=== PATIENT | female | born 1995 | race Caucasian/White ===

== ENCOUNTER 2018-03-19 09:42 | Emergency (ER) | payer MEDICAID ==
[~2018-03-19] VITALS: Ht 175.3 cm; Wt 74.8 kg
[2018-03-19] MEDS ORDERED: XANAX 0.5 MG0.5 MG PO (09:53)
[2018-03-19 10:37] LABS: ABSOLUTE BASOPHILS 0.1 thou/uL (0.0-0.2); ABSOLUTE EOSINOPHILS 0.2 thou/uL (0.0-0.7); ABSOLUTE LYMPHOCYTES 1.4 thou/uL (0.8-5.3); ABSOLUTE MONOCYTES 0.5 thou/uL (0.0-1.2); ABSOLUTE NEUTROPHILS 7.1 thou/uL (1.6-8.1); BASOPHILS 0.9 %; EOSINOPHILS 1.7 %; HEMATOCRIT 44.8 % (37.0-47.0); HEMOGLOBIN 15.1 gm/dL (12.0-15.0); LYMPHOCYTES 14.9 %; MCH 30.9 pg (26.0-34.0); MCHC 33.7 g/dL (28.0-37.0); MCV 91.7 fL (80.0-100.0); MONOCYTES 5.9 %; MPV 9.6 fl. (7.2-11.1); NUCLEATED RBCS 0 /100WBC; PLATELET COUNT* 270 thou/uL (150-400); POLYS 76.6 %; RBC 4.89 mil/uL (4.20-5.00); WBC 9.3 thou/uL (4.0-11.0)
[2018-03-19 10:41] LABS: URINE CLARITY CLEAR; URINE COLOR YELLOW; URINE PROTEIN TRACE (Negative); URINE SPECIFIC GRAVITY 1.015 (1.005-1.030)
[2018-03-19 10:42] LABS: URINE BILIRUBIN NEGATIVE (Negative); URINE BLOOD NEGATIVE (Negative); URINE GLUCOSE-RANDOM NEGATIVE (Negative); URINE KETONES TRACE (Negative); URINE NITRITE-REFLEX NEGATIVE (Negative); URINE UROBILINOGEN 0.2 E.U./dl (0.2-1.0)
[2018-03-19 10:43] LABS: URINE LEUKOCYTES-REFLEX NEGATIVE (Negative)
[2018-03-19 10:44] LABS: CALCIUM 8.9 mg/dL (8.5-10.1); CREATININE 0.6 mg/dL (0.6-1.3); POTASSIUM 4.2 mmol/L (3.5-5.1)
[2018-03-19 10:49] LABS: ALBUMIN 4.3 g/dL (3.4-5.0); TOTAL BILIRUBIN 0.5 mg/dL (<0.1-1.0); TOTAL PROTEIN 7.7 g/dL (6.4-8.2)
[2018-03-19] MEDS ORDERED: ZOFRAN ODT4 MG SUBLING (11:05)
[2018-03-19 11:50] VITALS: BP 101/43
== END 2018-03-19 11:50 | disposition home or self-care (01) ==
LOC: M.ERS 09:42
PROVIDERS: Family Medicine
DX: R11.2 Nausea with vomiting, unspecified (principal)

== ENCOUNTER 2018-03-24 13:29 | Emergency (ER) | payer OTHER, MEDICAID ==
[~2018-03-24] VITALS: Ht 175.3 cm; Wt 68.0 kg
[~2018-03-24 13:29] MED LIST: XANAX 0.5 MG0.5 MG PO; ZOFRAN ODT4 MG SUBLING
[2018-03-24] MEDS ORDERED: NABUMETONE 750750 M1 PO (13:53)
[2018-03-24 14:34] VITALS: BP 128/61
== END 2018-03-24 14:34 | disposition home or self-care (01) ==
LOC: M.ERS 13:29
DX: S61.217A Laceration without foreign body of left little finger without damage to nail, initial encounter (principal); W26.0XXA Contact with knife, initial encounter; Y93.89 Activity, other specified; Y92.89 Other specified places as the place of occurrence of the external cause; Y99.8 Other external cause status

== ENCOUNTER 2018-04-03 16:23 | Emergency (ER) | payer OTHER, MEDICAID ==
[~2018-04-03] VITALS: Ht 180.3 cm; Wt 79.4 kg
[~2018-04-03 16:23] MED LIST changes: +NABUMETONE 750750 M1 PO
[2018-04-03 17:02] VITALS: BP 115/64
== END 2018-04-03 17:02 | disposition home or self-care (01) ==
LOC: M.ERS 16:23
DX: S61.217D Laceration without foreign body of left little finger without damage to nail, subsequent encounter (principal); X58.XXXD Exposure to other specified factors, subsequent encounter

== ENCOUNTER 2018-08-12 09:38 | Emergency (ER) | payer MEDICAID ==
[~2018-08-12] VITALS: Ht 175.3 cm; Wt 81.7 kg
[2018-08-12] MEDS ORDERED: AMOXICILLIN500 M1 PO (09:54)
[2018-08-12] MEDS ORDERED: ACETAMINOPHEN-1 EAC1 PO (09:54)
[2018-08-12] MEDS ORDERED: Magic Mouthwash PO (09:54)
[2018-08-12 10:26] VITALS: BP 128/77
== END 2018-08-12 10:27 | disposition home or self-care (01) ==
LOC: M.ERS 09:38
DX: J02.9 Acute pharyngitis, unspecified (principal)

== ENCOUNTER 2018-08-27 08:47 | Emergency (ER) | payer MEDICAID ==
[~2018-08-27] VITALS: Ht 175.3 cm; Wt 81.7 kg
[~2018-08-27 08:47] MED LIST changes: +ACETAMINOPHEN-1 EAC1 PO; +AMOXICILLIN500 M1 PO; +Magic Mouthwash PO
[2018-08-27 09:46] VITALS: BP 139/62
== END 2018-08-27 09:47 | disposition home or self-care (01) ==
LOC: M.ERS 08:47
DX: Z71.1 Person with feared health complaint in whom no diagnosis is made (principal); J45.909 Unspecified asthma, uncomplicated

== ENCOUNTER 2019-02-18 11:56 | Emergency (ER) | payer MEDICAID ==
[~2019-02-18] VITALS: Ht 180.3 cm; Wt 86.2 kg
[2019-02-18 12:08] VITALS: BP 132/83
[2019-02-18 13:05] LABS: ABSOLUTE BASOPHILS 0.1 thou/uL (0.0-0.2); ABSOLUTE LYMPHOCYTES 2.1 thou/uL (0.8-5.3); ABSOLUTE MONOCYTES 0.7 thou/uL (0.0-1.2); ABSOLUTE NEUTROPHILS 7.1 thou/uL (1.6-8.1); BASOPHILS 0.8 %; EOSINOPHILS 0.4 %; HEMATOCRIT 41.9 % (37.0-47.0); HEMOGLOBIN 14.8 gm/dL (12.0-15.0); LYMPHOCYTES 20.9 %; MCH 31.1 pg (26.0-34.0); MCHC 35.3 g/dL (28.0-37.0); MCV 88.1 fL (80.0-100.0); MONOCYTES 7.4 %; MPV 8.2 fl. (7.2-11.1); NUCLEATED RBCS 0 /100WBC; PLATELET COUNT* 283 thou/uL (150-400); POLYS 70.5 %; RBC 4.76 mil/uL (4.20-5.00); RDW-CV 13.7 % (10.5-14.5); WBC 10.1 thou/uL (4.0-11.0)
[2019-02-18 13:10] LABS: URINE BILIRUBIN NEGATIVE (Negative); URINE BLOOD NEGATIVE (Negative); URINE CLARITY SL CLOUDY; URINE COLOR YELLOW; URINE GLUCOSE-RANDOM NEGATIVE (Negative); URINE KETONES 1+ (Negative); URINE LEUKOCYTES-REFLEX NEGATIVE (Negative); URINE NITRITE-REFLEX NEGATIVE (Negative); URINE PROTEIN NEGATIVE (Negative); URINE SPECIFIC GRAVITY 1.015 (1.005-1.030); URINE UROBILINOGEN 0.2 E.U./dl (0.2-1.0)
[2019-02-18 13:14] LABS: ANION GAP 11 mmol/L (7-16); BUN 10 mg/dL (7-18); CALCIUM 8.7 mg/dL (8.5-10.1); CHLORIDE 101 mmol/L (98-107); CO2 24 mmol/L (21-32); CREATININE 1.1 mg/dL (0.6-1.3); GLUCOSE 113 mg/dL (70-99); POTASSIUM 3.5 mmol/L (3.5-5.1); SODIUM 136 mmol/L (136-145)
[2019-02-18 13:18] LABS: SQUAMOUS >10 Many /LPF (0-3)
[2019-02-18 13:19] LABS: BACTERIA-REFLEX None Seen /HPF (None Seen); URINE RBC 0-2 Rare /HPF (0-2); URINE WBC-REFLEX None Seen /HPF (0-5)
[2019-02-18 13:20] LABS: AMORPHOUS URATES Many /LPF (None Seen); CASTS None Seen /LPF (None Seen); MUCUS 4-6 Moderate strn/LPF (None Seen)
[2019-02-18 13:23] LABS: ALBUMIN 4.1 g/dL (3.4-5.0); ALKALINE PHOSPHATASE 99 U/L (46-116); LIPASE 66 U/L (73-393); SGOT 28 U/L (15-37); SGPT 51 U/L (30-65); TOTAL BILIRUBIN 0.8 mg/dL (<0.1-1.0); TOTAL PROTEIN 7.9 g/dL (6.4-8.2); TROPONIN-I LEVEL <0.06 ng/mL (<0.06)
[2019-02-18 16:29] LABS: AMP/METHAMP Negative (Negative); BARBITURATES Negative (Negative); BENZODIAZEPINES Negative (Negative); COCAINE Negative (Negative); METHADONE Negative (Negative); OPIATES Negative (Negative); PCP Negative (Negative); THC POSITIVE (Negative)
--- NOTE | 2019-02-18 17:05 | NUR ---
PT STATES SHE IS FEELING BETTER AND WANTS TO GO HOME. THE PATIENT WAS TOLD THAT SHE CAN SIGN A FORM TO LEAVE AGAINST MEDICAL ADVICE, THE PATIENT CONSENTED TO SIGN THE FORM AND REQUESTED THAT HER IV BE TAKEN OUT. THE PATIENT'S IV WAS REMOVED, AND RISKS AND BENEFITS OF LEAVING AGAINST MEDICAL ADVICE WERE EXPLAINED TO THE PATIENT. THE PATIENT VOICED UNDERSTANDING AND SIGNED REFUSAL OF MEDICAL EXAMINATION AND/OR TREATMENT PAPERWORK AND LEFT THE EMERGENCY DEPARTMENT. DR. BOSCH AND TEACHER EDUCATION INSTRUCTOR WERE NOTIFIED.
[2019-02-18 17:08] VITALS: BP 117/65
--- NOTE | 2019-02-18 17:25 | EKG ---
[place] [address] ELECTROCARDIOGRAM REPORT Name: SIERRAJANICE R Room: [place] [address] ADM IN .R.#: [id number] Admission: 02/18/19 Attend Phys: Alcides Wright MD Discharge: Date of : [birth year] Report #: [id number] THIS REPORT FOR: //name// [facility] ED Test Date: 2019-02-18 Test Time: 13:27:45 Pat Name: JANICE ESQUIVEL Department: Room: 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 02/18/19 1724 1327 [id number] Yoel Castillo MD, FACC /EPI
== END 2019-02-18 17:09 | disposition still patient (30) ==
LOC: M.ERS 11:56 → M.TBA-ER 14:51 → M.ERS 14:51 → M.TBA-ER 14:53 → M.ERS 17:09
PROVIDERS: Emergency Medicine Emergency Medical Services; Internal Medicine
DX: N28.0 Ischemia and infarction of kidney (principal); R11.2 Nausea with vomiting, unspecified; J45.909 Unspecified asthma, uncomplicated

== ENCOUNTER 2019-02-19 07:09 | Inpatient (IN) | payer MEDICAID ==
[~2019-02-19] VITALS: Ht 180.3 cm; Wt 93.2 kg
[2019-02-19 07:14] VITALS: BP 136/77
[2019-02-19 07:49] LABS: ABSOLUTE BASOPHILS 0.1 thou/uL (0.0-0.2); ABSOLUTE LYMPHOCYTES 3.1 thou/uL (0.8-5.3); ABSOLUTE MONOCYTES 0.6 thou/uL (0.0-1.2); ABSOLUTE NEUTROPHILS 5.6 thou/uL (1.6-8.1); BASOPHILS 0.5 %; EOSINOPHILS 0.2 %; HEMOGLOBIN 14.2 gm/dL (12.0-15.0); LYMPHOCYTES 32.9 %; MCH 30.5 pg (26.0-34.0); MCHC 34.7 g/dL (28.0-37.0); MONOCYTES 6.8 %; NUCLEATED RBCS 0 /100WBC; PLATELET COUNT* 302 thou/uL (150-400); POLYS 59.6 %; RBC 4.66 mil/uL (4.20-5.00); RDW-CV 13.5 % (10.5-14.5); WBC 9.5 thou/uL (4.0-11.0)
[2019-02-19 07:55] LABS: CALCIUM 8.6 mg/dL (8.5-10.1); CREATININE 0.9 mg/dL (0.6-1.3); POTASSIUM 3.1 mmol/L (3.5-5.1)
[2019-02-19 08:13] LABS: MAGNESIUM 2.2 mg/dL (1.8-2.4)
[2019-02-19 09:04] LABS: URINE BILIRUBIN NEGATIVE (Negative); URINE BLOOD NEGATIVE (Negative); URINE CLARITY CLEAR; URINE COLOR YELLOW; URINE GLUCOSE-RANDOM NEGATIVE (Negative); URINE KETONES 2+ (Negative); URINE LEUKOCYTES-REFLEX NEGATIVE (Negative); URINE NITRITE-REFLEX NEGATIVE (Negative); URINE PROTEIN NEGATIVE (Negative); URINE SPECIFIC GRAVITY 1.015 (1.005-1.030)
[2019-02-19 09:11] LABS: AMP/METHAMP Negative (Negative); BARBITURATES Negative (Negative); BENZODIAZEPINES Negative (Negative); COCAINE Negative (Negative); METHADONE Negative (Negative); OPIATES Negative (Negative); PCP Negative (Negative); THC POSITIVE (Negative)
[2019-02-19 13:08] VITALS: BP 128/78
--- NOTE | 2019-02-19 16:54 | 2DMMODE ---
[place] [address] 2 D/M-MODE ECHOCARDIOGRAM Name: THOMAS ESQUIVELSA Billy Room: [facility]7 ADM IN Mary#: [id number] Admission: 02/19/19 Attend Phys: Alcides Wright, Discharge: Date of : [birth year] Date of Service: 02/19/19 1653 Report #: [id number] THIS REPORT FOR: //name// APPROVED REPORT Study performed: 02/19/2019 15:31:24 EXAM: Comprehensive 2D, Doppler, and color-flow Echocardiogram Patient Location: In-Patient Room #: er Status: routine BSA: 2.02 HR: 65 bpm BP: 122/72 mmHg Rhythm: NSR Other Information Study Quality: Good Indications rule out embolic source 2D Dimensions IVSd: 9.32 (7-11mm) LVOT Diam: 18.72 (18-24mm) LVDd: 44.52 mm PWd: 7.76 (7-11mm) Ascending Ao: 24.29 (22-36mm) LVDs: 29.12 (25-40mm) Aortic Root: 26.13 mm Volumes Left Atrial Volume (Systole) LA ESV Index: 24.20 mL/m2 Aortic Valve AoV Peak Geoffrey.: 1.46 m/s AO Peak Gr.: 8.53 mmHg LVOT Max P.55 mmHg AO Mean Gr.: 4.99 mmHg LVOT Mean P.00 mmHg LVOT Max V: 1.37 m/s AO V2 VTI: 28.80 cm LVOT Mean V: 0.93 m/s GIA (VTI): 2.64 cm2 LVOT V1 VTI: 27.66 cm Mitral Valve E/A Ratio: 1.34 MV Decel. Time: 196.83 ms MV E Max Geoffrey.: 1.07 m/[place] [address] 2 D/M-MODE ECHOCARDIOGRAM Name: JANICE ESQUIVEL Room: [address] IN .R.#: [id number] Admission: 02/19/19 Attend Phys: Alcides Wright, Discharge: Date of : [birth year] Date of Service: 02/19/19 1653 Report #: [id number] MV PHT: 57.08 ms MVA (PHT): 3.85 cm2 TDI E/Lateral E': 5.35 E/Medial E': 6.69 Medial E' Geoffrey.: 0.16 m/s Lateral E' Geoffrey.: 0.20 m/s Pulmonary Valve PV Peak Geoffrey.: 1.17 m/s PV Peak Gr.: 5.45 mmHg Left Ventricle The left ventricle is normal size. There is normal LV segmental wall motion. There is normal left ventricular wall thickness. Left ventricular systolic function is normal. The left ventricular ejection fraction is within the normal range. LVEF is 60-65%. The left ventricular diastolic function is normal. Right Ventricle The right ventricle is normal size. The right ventricular systolic function is normal. Atria The left atrium size is normal. The right atrium size is normal. Aortic Valve The aortic valve is normal in structure. No aortic regurgitation is present. There is no aortic valvular stenosis. Mitral Valve The mitral valve is normal in structure. Trace mitral regurgitation. No evidence of mitral valve stenosis. Tricuspid Valve The tricuspid valve is normal in structure. Unable to assess PA pressure. Trace tricuspid regurgitation. Pulmonic Valve Pulmonic valve is not well visualized. There is no pulmonic valvular regurgitation. Great Vessels The aortic root is normal in size. IVC is normal in size and collapses >50% [place] [address] 2 D/M-MODE ECHOCARDIOGRAM Name: JANICE ESQUIVEL Room: [address] IN [facility]#: [id number] Admission: 02/19/19 Attend Phys: Alcides Wright, Discharge: Date of : [birth year] Date of Service: 02/19/19 1653 Report #: [id number] Pericardium There is no pericardial effusion. <Conclusion> Left ventricular systolic function is normal. The left ventricular ejection fraction is within the normal range. <ELECTRONICALLY SIGNED> By: Anmol Rodgers MD, FACC 02/19/191652 52 52 Anmol Rodgers MD, FACC /INF
[2019-02-19 17:48] VITALS: BP 122/82
[2019-02-19 17:58] VITALS: BP 140/89
[2019-02-19 20:00] VITALS: BP 120/76; BP 123/90
[2019-02-19 23:37] VITALS: BP 118/68
[2019-02-20 04:00] VITALS: BP 121/77
[2019-02-20 05:01] LABS: CALCIUM 7.9 mg/dL (8.5-10.1); CREATININE 0.8 mg/dL (0.6-1.3); POTASSIUM 3.6 mmol/L (3.5-5.1)
[2019-02-20 05:03] LABS: ABSOLUTE BASOPHILS 0.1 thou/uL (0.0-0.2); ABSOLUTE EOSINOPHILS 0.1 thou/uL (0.0-0.7); ABSOLUTE LYMPHOCYTES 2.3 thou/uL (0.8-5.3); ABSOLUTE MONOCYTES 0.7 thou/uL (0.0-1.2); ABSOLUTE NEUTROPHILS 2.9 thou/uL (1.6-8.1); BASOPHILS 0.9 %; EOSINOPHILS 1.6 %; HEMATOCRIT 35.6 % (37.0-47.0); HEMOGLOBIN 12.3 gm/dL (12.0-15.0); LYMPHOCYTES 38.3 %; MCH 31.1 pg (26.0-34.0); MCHC 34.6 g/dL (28.0-37.0); MCV 90.1 fL (80.0-100.0); MONOCYTES 11.8 %; MPV 8.6 fl. (7.2-11.1); NUCLEATED RBCS 0 /100WBC; POLYS 47.4 %; RBC 3.95 mil/uL (4.20-5.00); RDW-CV 13.9 % (10.5-14.5); WBC 6.1 thou/uL (4.0-11.0)
[2019-02-20 05:12] LABS: PLATELET COUNT* 217 thou/uL (150-400)
[2019-02-20 09:00] VITALS: BP 145/93
[2019-02-20 12:44] VITALS: BP 144/98
[2019-02-20 13:25] LABS: ALBUMIN 3.3 g/dL (3.4-5.0); DIRECT BILIRUBIN 0.2 mg/dL (<0.1-0.3); TOTAL BILIRUBIN 0.5 mg/dL (<0.1-1.0); TOTAL PROTEIN 5.8 g/dL (6.4-8.2)
[2019-02-20 17:00] VITALS: BP 104/52
[2019-02-20 20:00] VITALS: BP 120/76
[2019-02-20 23:35] VITALS: BP 112/62
[2019-02-21 04:16] VITALS: BP 122/63
[2019-02-21 07:47] VITALS: BP 136/61
[2019-02-21] MEDS ORDERED: CEFUROXIME500 MG PO (10:12)
[2019-02-21] MEDS ORDERED: ZOFRAN ODT4 MG PO (10:14)
[2019-02-21 10:19] VITALS: BP 136/61
--- NOTE | 2019-02-21 12:20 | CON ---
[address] [address] CONSULTATION Name: JANICE ESQUIVEL Wenceslao Room: [address] IN M.R.#: [id number] Admission: 02/19/19 Attend Phys: Alcides Wright MD Discharge: 02/21/19 Date of : [birth year] Report #: [id number] THIS REPORT FOR: //name// CC: Alcides Wright [facility] physician/PCP DATE OF SERVICE: 02/20/2019 HISTORY OF PRESENT ILLNESS: A 23-year-old female with no significant past medical history, admitted with possible pyelonephritis. The GI service has been consulted for evaluation of nausea and vomiting. The patient reports nausea and vomiting began about 2 days back. She reports about 4 episodes of vomiting per day. The emesis usually is clear or bilious. She denies any hematemesis or coffee-ground emesis. The patient denies any similar episodes in the past and denies any difficulty swallowing. She does have abdominal pain, but this is not in response to food and appears to be localized to the suprapubic and bilateral flank regions. The patient denies any subjective sensation of fever or chills at this time. Her bowel movements have been regular. PAST MEDICAL HISTORY: Nonsignificant. PAST SURGICAL HISTORY: Nonsignificant. SOCIAL HISTORY: The patient denies smoking or alcohol use. She does smoke marijuana every week. She denies any other recreational drug use. FAMILY HISTORY: No family history of colon cancer or other [place]-related neoplasia. REVIEW OF SYSTEMS: Comprehensive 10-point review of systems is negative except for what was mentioned in the HPI. PHYSICAL EXAMINATION: GENERAL: The patient is alert, awake, oriented x 3. HEENT: Pupils are equal, round, reactive to light and accommodation. Mucous membranes are moist. There is no congestion. LUNGS: Clear to auscultation bilaterally. CARDIOVASCULAR: Rate and rhythm regular, S1, S2 present. ABDOMEN: Soft. There is no distention, guarding or rigidity. EXTREMITIES: Warm, well perfused. There is no edema. SKIN: Warm and dry. LABORATORY DATA: Hemoglobin 12.3, hematocrit 35.6, platelet count 217, WBC count 6.1. Sodium 141, potassium 3.6, chloride 107, bicarbonate 26, BUN 3, creatinine 0.8. CRP 8.2. Urine [place] [address] CONSULTATION Name: JANICE ESQUIVEL Room: [address] IN .R.#: [id number] Admission: 02/19/19 Attend Phys: Alcides Wright MD Discharge: 02/21/19 Date of : [birth year] Report #: [id number] IMAGING: CT abdomen and pelvis, multiple areas of abnormal enhancement in the kidneys, these are less intense than typically seen with infarct appearance such as pyelonephritis or pyelonephrosis. Infiltrative process in the kidney is felt less likely with no discharge, no mass effect. Kidneys also demonstrate multiple small bilateral renal arteries, which is somewhat limited evaluation of the renal arteries because of the small size. Left ovarian adnexal cystic mass. Ultrasound correlation could be obtained. ASSESSMENT AND PLAN: Pleasant 23-year-old female presenting with abdominal pain, found to have possible pyelonephritis. The GI service has been consulted for evaluation of nausea and vomiting. I suspect the nausea and vomiting are related to the patient's pyelonephritis. I would recommend treating the primary cause. If the patient's symptoms persist in a week or two, we can reevaluate her at that time. No plans for endoscopic intervention at this time. Thank you for this consultation. <ELECTRONICALLY SIGNED> By: Jose Harper MD 02/21/19 1220 1108 1244Jose Harper MD /nt
== END 2019-02-21 10:40 | disposition home or self-care (01) | DRG 690 ==
LOC: M.ERS 07:09 → M.TBA-ER 09:09 → M.2W 17:48
PROVIDERS: Emergency Medicine Emergency Medical Services; ADMIT Internal Medicine
DX: N12 Tubulo-interstitial nephritis, not specified as acute or chronic (principal); J45.909 Unspecified asthma, uncomplicated; G43.A0 Cyclical vomiting, in migraine, not intractable; F12.90 Cannabis use, unspecified, uncomplicated; N83.202 Unspecified ovarian cyst, left side; Z23 Encounter for immunization